=== PATIENT | male | born 1960 | race Caucasian/White ===

== ENCOUNTER 2017-11-03 09:20 | Day surgery (SDC) | payer BC ==
[2017-11-03] MEDS ORDERED: BUPIVACAINE 0.75% W/EPI MPF 30ML VIAL IVP ONE (09:21)
[2017-11-03] MEDS ORDERED: LIDOCAINE 2% MDV (20MG/ML) 20ML VIAL IV ONE (09:21)
[2017-11-03] MEDS ORDERED: FENTANYL PF 100MCG/2ML VIAL IV ONE (09:21)
[2017-11-03] MEDS ORDERED: LIDOCAINE 1% W/EPI 1:200,000 MPF 30ML SQ ONE (09:21)
[2017-11-03] MEDS ORDERED: HYDROCODONE/APAP 7.5/325MG TABLET PO ONE (09:21)
[2017-11-03] MEDS ORDERED: MIDAZOLAM HCL 2MG/2ML VIAL IV ONE (09:21)
[2017-11-03] MEDS ORDERED: DEXAMETHASONE PRESERVATIVE FREE 10MG/ML VIAL IV ONE (09:21)
[2017-11-03] MEDS ORDERED: *PACU ONLY* KETAMINE HCL 10 MG/ML (20ML) VIAL IV ONE (09:21)
[2017-11-03] MEDS ORDERED: PROPOFOL 10 MG/ML VIAL IV ONE (09:21)
--- NOTE | 2017-11-03 15:38 | Operative Note - [place] ---
DATE OF SURGERY: 11/03/17 PREOPERATIVE DIAGNOSIS: CERVICAL SPONDYLOSIS WITHOUT MYELOPATHY, ICD-10 CODE = M47.812. OPERATION: RADIOFREQUENCY RHIZOTOMY BILATERAL CERVICAL FACETS, 4-5 AND 5- 6. SURGEON: VALERIO ANAND D.O. ANESTHESIA: LOCAL SEDATION. ANESTHESIA PROVIDER: BAM BANGURA CRNA INDICATION: This patient presents with pain, which is neck and shoulder. Diagnostics show significant osteophytic spur formation at 5-6, 4-5, and 6-7. A previous facet series at 3-4 through 5-6, 75 to 90% pain control. Due to the failure of therapy, he presents for rhizotomy for more long-term relief. Insurance authorization has only approved two levels 4-5 and 5-6 bilateral. PROCEDURE: Intravenous line, vital sign monitoring, IV sedation. Prepped and draped sterile technique. Cervical facet levels at 4-5 and 5-6 bilateral. Skin infiltrated. Patient in a prone position. Sterile prep. Sterile technique. Imaging for guidance for guidance. Local for infiltration. 4-5 and 5-6 facets bilateral. Skin infiltrated and a 20-gauge rhizotomy cannula positioned. Stimulation trials conducted. Rhizotomy burn performed. Local with anti- inflammatory into the sites. Topical antibiotics. Sterile dressing was applied. The motor and stimulation patterns were all appropriate with no abnormalities noted. cc: Dr. Melo JOB NUMBER: [id number] MTDD
== END 2017-11-03 11:20 | disposition home or self-care (01) ==
LOC: SUR 09:20
PROVIDERS: ATTEND Pain Medicine Interventional Pain Medicine
DX: M47.816 Spondylosis without myelopathy or radiculopathy, lumbar region (principal)
CPT/HCPCS: 64633; 64634; 01936; J1100; J3010; J3490